=== PATIENT | male | born 1950 | race Caucasian/White ===

== ENCOUNTER 2016-12-11 19:18 | Emergency (ER) | payer MEDICARE, OTHER ==
[2016-12-11 19:55] VITALS: PULSE 88; TEMP 97.8; BMI 28.3
[2016-12-11] MEDS ORDERED: ONDANSETRON 4 MG/2 ML VIAL IVPUSH ONE (20:27)
[2016-12-11] MEDS ORDERED: morphine CARPU-JECT 4 MG/1 ML DISP.SYRIN IVPUSH ONE (20:27)
[2016-12-11] MEDS ORDERED: SODIUM CHLORIDE 1,000 ML IV STA (20:27)
[2016-12-11] MEDS ORDERED: morphine CARPU-JECT 4 MG/1 ML DISP.SYRIN ONE (20:38)
[2016-12-11] MEDS ORDERED: ONDANSETRON 4 MG/2 ML VIAL ONE (20:38)
[2016-12-11 21:29] LABS: BASOPHIL 0.6 % (0-2.0); EOSINOPHIL 3.3 % (0-4.5); MCH 31.1 pg (25.7-33.7); MCHC 34.2 g/dl (32.0-35.9); MEAN CELL VOLUME 90.9 fl (80-96); MEAN PLT VOLUME 7.5 fl (7.5-11.1); NEUTROPHILS 62.7 % (42.8-82.8); PLATELET COUNT 400 K/MM3 (134-434); RDW 13.2 % (11.9-15.9); WHITE BLOOD COUNT 14.6 K/mm3 (4.0-10.0)
[2016-12-11 21:51] LABS: URINE APPEARANCE CLEAR; URINE BILIRUBIN NEGATIVE (NEGATIVE); URINE COLOR STRAW; URINE GLUCOSE (UA) NEGATIVE (NEGATIVE); URINE KETONE NEGATIVE (NEGATIVE); URINE NITRITE NEGATIVE (NEGATIVE); URINE PROTEIN NEGATIVE (NEGATIVE); URINE UROBILINOGEN NEGATIVE E.U./dl (0.2-1.0)
[2016-12-11 21:53] LABS: URINE BLOOD 2+ (NEGATIVE); URINE LEUK ESTERASE 3+ (NEGATIVE)
[2016-12-11 21:55] LABS: ACTIVATED PTT 29.8 SECONDS (26.9-34.4); D-DIMER < 200 ng/ml (<200-235)
[2016-12-11 21:57] LABS: ALBUMIN 3.2 g/dl (3.4-5.0); ANION GAP 13 (8-16); BILIRUBIN,TOTAL 0.3 mg/dL (0.2-1.0); CALCIUM 7.8 mg/dL (8.5-10.1); CO2 19 mmol/L (21-32); COCKROFT - GAULT 93.23; CREATININE 0.8 mg/dL (0.7-1.3); GLUCOSE,RANDOM 131 mg/dL (74-106); SGOT/AST 18 U/L (15-37); SGPT/ALT 40 U/L (12-78); TOT PROT 6.4 g/dl (6.4-8.2)
[2016-12-11 21:59] LABS: ALK PHOS 84 U/L (45-117); TROPONIN I < 0.02 ng/ml (0.00-0.05)
[2016-12-11 22:02] LABS: URINE MUCUS RARE; URINE RBC 21 /hpf (0-3); URINE WBC 70 /hpf (3-5)
[2016-12-11] MEDS ORDERED: HYDROmorphone HCL CARPU-JECT 1 MG/1 ML DISP.SYRIN IVPB ONE (22:35)
[2016-12-11 22:46] VITALS: BP 127/78
--- NOTE | 2016-12-11 23:21 | PDOC ---
History of Present Illness - General Chief Complaint: Chest Pain Stated Complaint: CHEST PAIN Time Seen by Provider: 12/11/16 19:33 History Source: Patient, Family (Son), Geologic Technician Used Exam Limitations: Language Barrier - History of Present Illness Initial Comments: 12/11/16 23:17 66yo Male patient presents to c/o chest pain, upper back pain, and trouble breathing since 10am this morning, which is getting worse. Patient states 2 weeks ago, renal stent placed by Dr. Del Cid due to Renal Colic. Family reports during surgery patient became hypotensive. Family denies fever, n/v/d, abdominal pain, or any other complaints at this time. Presenting Symptoms: Back Pain, Chest Pain Timing/Duration: reports: getting worse Severity/Quality: reports: moderate Location: reports: substernal Chest Pain Radiation: reports: back Activities at Onset: reports: no specific activity Prior Chest Pain/Cardiac Workup: denies: No prior chest pain, No prior cardiac workup, Non-cardiac, Angina, Cardiac Cath, Cardiolye Scan, Echocardiography, Heart Attack, Pulmonary Embolism, Stress Test, Thallium Scan, Other Modifying Factors: worse with: antacids, breathing, coughing, defecating, eating , exercise, lying down, morphine, movement, nitroglycerin, oxygen, palpation, rest, other Nitro Today/Relief: No: no nitro taken today, 0.4 mg x 1, 0.4 mg x 2, 0.4 mg x 3 , 0.4 mg x 4, provided by EMS, provided by ED, provided at home, no relief, mild relief, complete relief Aspirin Received prior to arrival (Core Measure): No: no aspirin today, unknown , 81 mg x 1, 81 mg x 2, 81 mg x 3, 81 mg x 4, 325 mg x 1, provided at home, provided by EMS, provided by ED Past History - Travel Traveled outside of the country in the last 30 days: No Close contact w/someone who was outside of country & ill: No - Past Medical History Allergies/Adverse Reactions: Allergies Allergy/AdvReac Type Severity Reaction Status Date / Time No Known Allergies Allergy Verified 12/11/16 19:26 Home Medications: Ambulatory Orders Alfuzosin HCl [Alfuzosin HCl ER] 10 mg PO DAILY 12/12/16 Cyclobenzaprine HCl [Flexeril 10 mg] 10 mg PO TID PRN #15 tablet 12/12/16 Escitalopram Oxalate [Lexapro -] 5 mg PO DAILY 12/12/16 Levofloxacin [Levaquin] 500 mg PO DAILY 12/12/16 Levofloxacin [Levaquin] 750 mg PO DAILY #6 tab 12/12/16 Oxycodone HCl/Acetaminophen [Percocet 5-325 mg Tablet] 1 tab PO Q6H PRN #20 tablet MDD 4 tabs 12/12/16 Zolpidem Tartrate 10 mg PO DAILY 12/12/16 Diabetes: Yes Hypercholesterolemia: Yes - Surgical History Cholecystectomy: Yes - Psycho/Social/Smoking Cessation Hx Suicidal Ideation: No Smoking History: Unknown if ever smoked Have you smoked in the past 12 months: No Number of Cigarettes Smoked Daily: 0 Information on smoking cessation initiated: No Hx Alcohol Use: No Drug/Substance Use Hx: No Cardiac Specific PMH - Complaint Specific PMHX Abdominal Aortic Aneurysm: No Angina: No Cardiac Arrhythmia: No Cardiac Stent: No GERD: No Myocardial Infarction: No Pacemaker: No Pulmonary Embolus: No Valvular Heart Disease: No Peripheral Vascular Disease: No Review of Systems - Review of Systems Able to Perform ROS?: Yes Is the patient limited Yi proficient: No Constitutional: No: Chills, Fever Respiratory: Yes: Shortness of Breath. No: Cough, Orthopnea, Stridor, Wheezing Cardiac (ROS): Yes: Chest Pain. No: Edema, Lightheadedness, Palpitations, Syncope, Chest Tightness ABD/GI: No: Diarrhea, Nausea, Poor Appetite, Poor Fluid Intake, Vomiting, Abdominal cramping : No: Burning, Dysuria, Frequency, Flank Pain, Hematuria Musculoskeletal: Yes: Back Pain. No: Muscle Pain, Muscle Weakness Integumentary: No: Erythema, Rash, Sweating Neurological: No: Headache, Seizure, Weakness, Unsteady Gait, Ataxia, Dizziness All Other Systems: Reviewed and Negative *Physical Exam - Vital Signs Last Vital Signs Temp Pulse Resp BP Pulse Ox 97.8 F 88 16 127/78 98 12/11/16 19:53 12/11/16 19:53 12/11/16 19:53 12/11/16 22:36 12/11/16 22:36 - Physical Exam General Appearance: Yes: Nourished, Appropriately Dressed, Apparent Distress, Moderate Distress. No: Mild Distress, Severe Distress Neck: positive: Trachea midline, Normal Thyroid, Supple. negative: Tender, Lymphadenopathy (R), Lymphadenopathy (L) Respiratory/Chest: positive: Lungs Clear, Normal Breath Sounds. negative: Respiratory Distress, Accessory Muscle Use, Labored Respiration, Rapid RR, Stridor, Wheezing Cardiovascular: positive: Regular Rhythm, Regular Rate. negative: Edema, JVD, Murmur Gastrointestinal/Abdominal: positive: Normal Bowel Sounds, Soft. negative: Distended, Guarding, Rebound, Tenderness Musculoskeletal: positive: Normal Inspection. negative: CVA Tenderness Extremity: positive: Normal Capillary Refill, Normal Inspection, Normal Range of Motion Integumentary: positive: Normal Color, Dry, Warm Neurologic: positive: foreign diplomat II-XII NML intact, Fully Oriented, Alert, Normal Mood/ Affect, Normal Response, Motor Strength 01/04 ED Treatment Course - LABORATORY CBC & Chemistry Diagram: 12/11/16 21:25 12/11/16 21:25 - ADDITIONAL ORDERS Additional order review: Laboratory Results 12/12/16 12/11/16 12/11/16 02:00 21:25 21:25 INR PTT (Actin FS) D-Dimer Sodium 136 Potassium 4.2 Chloride 104 Carbon Dioxide 19 L Anion Gap 13 BUN 13 Creatinine 0.8 Creat Clearance w eGFR > 60 Random Glucose 131 H Calcium 7.8 L Total Bilirubin 0.3 AST 18 ALT 40 Alkaline Phosphatase 84 Creatine Kinase 139 131 Troponin I < 0.02 < 0.02 Total Protein 6.4 Albumin 3.2 L Urine Color Straw Urine Appearance Clear Urine pH 5.0 Ur Specific [place] 1.010 Urine Protein Negative Urine Glucose (UA) Negative Urine Ketones Negative Urine Blood 2+ H Urine Nitrite Negative Urine Bilirubin Negative Urine Urobilinogen Negative Ur Leukocyte Esterase 3+ H Urine RBC 21 Urine WBC 70 Urine Mucus Rare 12/11/16 21:25 INR 1.10 PTT (Actin FS) 29.8 D-Dimer < 200 Sodium Potassium Chloride Carbon Dioxide Anion Gap BUN Creatinine Creat Clearance w eGFR Random Glucose Calcium Total Bilirubin AST ALT Alkaline Phosphatase Creatine Kinase Troponin I Total Protein Albumin Urine Color Urine Appearance Urine pH Ur Specific [place] Urine Protein Urine Glucose (UA) Urine Ketones Urine Blood Urine Nitrite Urine Bilirubin Urine Urobilinogen Ur Leukocyte Esterase Urine RBC Urine WBC Urine Mucus 12/11/16 21:25 RBC 3.96 L MCV 90.9 MCHC 34.2 RDW 13.2 MPV 7.5 Neutrophils % 62.7 Lymphocytes % 25.0 Monocytes % 8.4 Eosinophils % 3.3 Basophils % 0.6 - RADIOLOGY Radiology Studies Ordered: Category Date Time Status ABDOMEN & PELVIS CT WITH CONTR [CT] Stat CT Scan 12/11/16 22:[address] WITH CONTRAST [CT] Stat CT Scan 12/11/16 23:35 Taken CHEST X-RAY PORTABLE* [RAD] Stat Radiology 12/11/16 20:27 Taken - Medications Given in the ED: ED Medications Discontinued Medications Generic Name Dose Route Start Last Admin Trade Name Freq PRN Reason Stop Dose Admin Hydromorphone HCl 1 mg 12/11/16 22:35 12/11/16 23:34 Dilaudid Injection - IVPB 12/11/16 22:36 1 mg ONCE ONE Administration Sodium Chloride 1,000 mls @ 1,000 mls/hr 12/11/16 20:27 12/11/16 20:46 Normal Saline - IV 12/11/16 21:26 1,000 mls/hr ASDIR STA Administration Morphine Sulfate 4 mg 12/11/16 20:27 12/11/16 20:45 Morphine Injection - IVPUSH 12/11/16 20:28 4 mg ONCE ONE Administration Ondansetron HCl 4 mg 12/11/16 20:27 12/11/16 20:46 Zofran Injection IVPUSH 12/11/16 20:28 4 mg ONCE ONE Administration *DC/Admit/Observation/Transfer Diagnosis at time of Disposition: Atypical chest pain UTI (urinary tract infection) Qualifiers: Urinary tract infection type: catheter-associated UTI Indwelling urinary catheter type: indwelling urethral catheter Encounter type: initial encounter Qualified Code(s): T83.511A - Infection and inflammatory reaction due to indwelling urethral catheter, initial encounter; N39.0 - Urinary tract infection , site not specified - Discharge Dispostion Disposition: HOME Condition at time of disposition: Improved Admit: No - Prescriptions Prescriptions: Cyclobenzaprine HCl [Flexeril 10 mg] 10 mg PO TID PRN #15 tablet PRN Reason: Back Pain Levofloxacin [Levaquin] 750 mg PO DAILY #6 tab Oxycodone HCl/Acetaminophen [Percocet 5-325 mg Tablet] 1 tab PO Q6H PRN #20 tablet MDD 4 tabs PRN Reason: Severe Pain - Patient Instructions Printed Discharge Instructions: DI for Atypical Chest Pain, DI for Urinary Tract Infection (UTI) Additional Instructions: Seguimiento con el Dr. Balderas esta semana. Llame para programar paris mikey. [place] los medicamentos segn lo prescrito. Motrin o Tylenol para dolor leve segn sea necesario. Percocet para el dolor no aliviado por Motrin o Tylenol. No conduzca , hien alcohol ni opere maquinaria pesada mientras est tomando Percocet. Hien mercedes agua. Regresar si los sntomas empeoran o cualquier inquietud para paris evaluacin posterior. Follow up with Dr. Balderas this week. Call to schedule appointment. Take medications as prescribed. Motrin or Tylenol for mild pain as needed. Percocet for pain not relieved by Motrin or Tylenol. Do not drive, drink alcohol, or operate heavy machinery while taking Percocet. Drink plenty water. Return if symptoms worsen or any concerns for further evaluation. Print Language: JAMAICAN
[2016-12-11] MEDS ORDERED: HYDROmorphone HCL CARPU-JECT 1 MG/1 ML DISP.SYRIN ONE (23:35)
--- NOTE | 2016-12-11 23:58 | PDOC ---
*Physical Exam - Vital Signs Last Vital Signs Temp Pulse Resp BP Pulse Ox 97.8 F 88 16 127/78 98 12/11/16 19:53 12/11/16 19:53 12/11/16 19:53 12/11/16 22:36 12/11/16 22:36 - Physical Exam Comments: 12/11/16 23:57 The patient was examined by FRANTZ Landa under my direct supervision. I personally evaluated the patient. I concur with the above findings and the plan of care. ED Treatment Course - LABORATORY CBC & Chemistry Diagram: 12/11/16 21:25 12/11/16 21:25 - ADDITIONAL ORDERS Additional order review: Laboratory Results 12/11/16 12/11/16 12/11/16 21:25 21:25 21:25 INR 1.10 PTT (Actin FS) 29.8 D-Dimer < 200 Sodium 136 Potassium 4.2 Chloride 104 Carbon Dioxide 19 L Anion Gap 13 BUN 13 Creatinine 0.8 Creat Clearance w eGFR > 60 Random Glucose 131 H Calcium 7.8 L Total Bilirubin 0.3 AST 18 ALT 40 Alkaline Phosphatase 84 Creatine Kinase 131 Troponin I < 0.02 Total Protein 6.4 Albumin 3.2 L Urine Color Straw Urine Appearance Clear Urine pH 5.0 Ur Specific [place] 1.010 Urine Protein Negative Urine Glucose (UA) Negative Urine Ketones Negative Urine Blood 2+ H Urine Nitrite Negative Urine Bilirubin Negative Urine Urobilinogen Negative Ur Leukocyte Esterase 3+ H Urine RBC 21 Urine WBC 70 Urine Mucus Rare 12/11/16 21:25 RBC 3.96 L MCV 90.9 MCHC 34.2 RDW 13.2 MPV 7.5 Neutrophils % 62.7 Lymphocytes % 25.0 Monocytes % 8.4 Eosinophils % 3.3 Basophils % 0.6 - Medications Given in the ED: ED Medications Discontinued Medications Generic Name Dose Route Start Last Admin Trade Name Freq PRN Reason Stop Dose Admin Hydromorphone HCl 1 mg 12/11/16 22:35 12/11/16 23:34 Dilaudid Injection - IVPB 12/11/16 22:36 1 mg ONCE ONE Administration Sodium Chloride 1,000 mls @ 1,000 mls/hr 12/11/16 20:27 12/11/16 20:46 Normal Saline - IV 12/11/16 21:26 1,000 mls/hr ASDIR STA Administration Morphine Sulfate 4 mg 12/11/16 20:27 12/11/16 20:45 Morphine Injection - IVPUSH 12/11/16 20:28 4 mg ONCE ONE Administration Ondansetron HCl 4 mg 12/11/16 20:27 12/11/16 20:46 Zofran Injection IVPUSH 12/11/16 20:28 4 mg ONCE ONE Administration *DC/Admit/Observation/Transfer Diagnosis at time of Disposition: UTI (urinary tract infection), Atypical chest pain - Discharge Dispostion Disposition: HOME - Prescriptions Prescriptions: Cyclobenzaprine HCl [Flexeril 10 mg] 10 mg PO TID PRN #15 tablet PRN Reason: Back Pain Levofloxacin [Levaquin] 750 mg PO DAILY #6 tab Oxycodone HCl/Acetaminophen [Percocet 5-325 mg Tablet] 1 tab PO Q6H PRN #20 tablet MDD 4 tabs PRN Reason: Severe Pain - Referrals Referrals: Linus Balderas MD [Primary Care Provider] - - Patient Instructions Printed Discharge Instructions: DI for Urinary Tract Infection (UTI), DI for Atypical Chest Pain Additional Instructions: Seguimiento con el Dr. Balderas esta semana. Llame para programar paris mikey. [place] los medicamentos segn lo prescrito. Motrin o Tylenol para dolor leve segn sea necesario. Percocet para el dolor no aliviado por Motrin o Tylenol. No conduzca , hien alcohol ni opere maquinaria pesada mientras est tomando Percocet. Hien mercedes agua. Regresar si los sntomas empeoran o cualquier inquietud para paris evaluacin posterior. Follow up with Dr. Balderas this week. Call to schedule appointment. Take medications as prescribed. Motrin or Tylenol for mild pain as needed. Percocet for pain not relieved by Motrin or Tylenol. Do not drive, drink alcohol, or operate heavy machinery while taking Percocet. Drink plenty water. Return if symptoms worsen or any concerns for further evaluation. Print Language: ESTONIAN
[2016-12-12 02:47] LABS: TROPONIN I < 0.02 ng/ml (0.00-0.05)
[2016-12-12] MEDS ORDERED: OXYCODONE/APAP 5/325MG COMBO TABLET PO ONE (02:57)
[2016-12-12] MEDS ORDERED: AZITHROMYCIN 250 MG TABLET (FP) PO ONE (02:57)
[2016-12-12] MEDS ORDERED: LEVOFLOXACIN 500 MG TABLET (FP) ONE (03:22)
[2016-12-12] MEDS ORDERED: OXYCODONE/APAP 5/325MG COMBO TABLET ONE (03:22)
[2016-12-12] MEDS ORDERED: LEVOFLOXACIN 250 MG TABLET (FP) ONE (03:23)
[2016-12-12] MEDS ORDERED: LEVOFLOXACIN 750 MG TABLET PO ONE (03:51)
[2016-12-12] MEDS ORDERED: LEVOFLOXACIN 750 MG TABLET PO SCH (10:00)
--- NOTE | 2016-12-13 11:42 | EKG ---
Test Reason : Blood Pressure : / mmHG Vent. Rate : 080 BPM Atrial Rate : 080 BPM P-R Int : 190 ms QRS Dur : 078 ms QT Int : 358 ms P-R-T Axes : 053 055 062 degrees QTc Int : 412 ms NORMAL SINUS RHYTHM NORMAL ECG NO PREVIOUS ECGS AVAILABLE Confirmed by KAVYA TEE MD ([id number]) on 12/13/2016 11:41:38 AM Referred By: Confirmed By:KAVYA TEE MD
== END 2016-12-12 03:37 | disposition home or self-care (01) ==
LOC: JER 19:18
PROC: 3E033NZ Introduction of Analgesics, Hypnotics, Sedatives into Peripheral Vein, Percutaneous Approach (ICD-10-PCS; principal; 2016-12-11)
PROC: 3E033GC Introduction of Other Therapeutic Substance into Peripheral Vein, Percutaneous Approach (ICD-10-PCS; 2016-12-11)
DX: R07.89 Other chest pain (principal); T83.511A Infection and inflammatory reaction due to indwelling urethral catheter, initial encounter; N31.9 Neuromuscular dysfunction of bladder, unspecified
CPT/HCPCS: 36415; 71010-TC; 71260-TC; 74177-TC; 80053; 81003; 81015; 82550; 84484; 85025; 85379; 85610; 85730; 87086; 93005; 93010; 96374; 96375; 99284-25

== ENCOUNTER 2017-04-18 08:52 | Day surgery (SDC) | payer MEDICARE, OTHER ==
[2017-04-17 11:41] VITALS: BMI 28.3
[2017-04-18] MEDS ORDERED: PROPOFOL 20 ML ONE (10:49)
[2017-04-18] MEDS ORDERED: MIDAZOLAM HCL 2 MG/2 ML SINGLE DOSE VIAL ONE (10:49)
[2017-04-18] MEDS ORDERED: LIDOCAINE HCL/PF 2% SDV 5ML VIAL ONE (10:50)
[2017-04-18] MEDS ORDERED: LIDOCAINE HCL 2% JELLY 10 ML CARTRIDGE ONE (11:46)
[2017-04-18] MEDS ORDERED: LEVOFLOXACIN 500 MG IVPB ONE (12:50)
[2017-04-18] MEDS ORDERED: LEVOFLOXACIN 500 MG PREMIX BAG IVPB ONE (12:51)
[2017-04-18] MEDS ORDERED: FUROSEMIDE 40 MG/4 ML INJECTABLE VIAL ONE (13:06)
[2017-04-18] MEDS ORDERED: oxyCODONE HCL 5 MG TABLET PO PRN (13:19)
--- NOTE | 2017-04-18 13:19 | OP ---
Operative Note - Note: Operative Date: 04/18/17 Pre-Operative Diagnosis: BPH Operation: bipolar TURP Findings: lateral lobe tissue invaginating into bladder Post-Operative Diagnosis: Same as Pre-op Surgeon: Ayad Figueredo Anesthesia: Spinal Specimens Removed: prostate chips Estimated Blood Loss (mls): 5 Drains & Tubes with Location: 24 fr renee Operative Report Dictated: Yes
[2017-04-18] MEDS ORDERED: ACETAMINOPHEN 325 MG TABLET (FP) PO PRN (13:21)
[2017-04-18] MEDS ORDERED: ONDANSETRON 4 MG/2 ML VIAL IVPUSH PRN (13:21)
[2017-04-18] MEDS ORDERED: ELECTROLYTE-148 SOLN 1,000 ML IV SCH (13:30)
[2017-04-18] MEDS ORDERED: LACTATED RINGERS SOLUTION 1,000 ML IV SCH (13:30)
[2017-04-18 14:39] VITALS: TEMP 97.7
--- NOTE | 2017-04-18 14:54 | OP ---
DATE OF OPERATION: DATE OF DICTATION: 04/18/2017 PREOPERATIVE DIAGNOSIS: Benign prostatic hypertrophy with frequency, urgency and bladder outlet obstruction. POSTOPERATIVE DIAGNOSIS: Benign prostatic hypertrophy with frequency, urgency and bladder outlet obstruction. PROCEDURE PERFORMED: Cystoscopy, bipolar transurethral resection of the prostate. SURGEON: Jean Carlos Delgado MD INDICATIONS: The patient is a 66-year-old male with history of BPH and bladder stones, status post TURP in the past and lithotripsy of bladder stones. He has had persistent urinary symptoms. Urodynamics revealed bladder outlet obstruction. After reviewing treatment options, the patient elected to undergo repeat TURP. The risks, benefits and alternatives were discussed, including bleeding, infection, impotence, incontinence, persistence of urinary symptoms, de samuel worsening of incontinence, erectile dysfunction, potential obstruction, and the potential need for additional procedures. DESCRIPTION OF PROCEDURE: After informed consent was obtained, the patient was taken to the OR and placed supine on the operating table. With cardiac monitoring established, a spinal anesthetic was then given. He was given 500 mg of Levaquin. The Olympus resectoscope with the visual obturator was inserted without difficulty. The anterior urethra was normal. The prostatic urethra with status post TUR defect with a large left lateral lobe of the prostate growing into the bladder. The bilateral ureteral orifices were seen and normal Using the bipolar loop, the large lateral tissue invaginating into the bladder was resected down to the muscle fibers of the prostatic urethra. All bleeding sites were then cauterized. No other obstructive tissue was noted. There was no resection beyond the verumontanum, to minimize incontinence. The [employer] evacuator was used to remove prostate chips. The resectoscope was then removed, and a 24-Ramirez was then placed to straight drainage. [place]-tinged urine was retrieved. The patient was then awoke from anesthesia and transferred to the recovery room in stable condition. There were no complications. Estimated blood loss was minimal. JEAN CARLOS DELGADO M.D. [id number]
[2017-04-18 16:30] VITALS: BP 109/69; PULSE 66
--- NOTE | 2017-04-19 16:21 | PATH ---
Surgical Pathology Report Patient Name: MARGUERITE JORGE [facility]. Rec. #: [id number] /Age/Gender: 1950 (Age: 66) / M Account: [id number] Location: [facility] SURGICAL Taken: 04/18/2017 Received: 04/18/2017 Reported: 04/19/2017 Physicians: Ayad Figueredo M.D. Specimen(s) Received PROSTATE CHIPS Clinical History BPH with LUTS Final Diagnosis PROSTATE, TUR: BENIGN PROSTATE TISSUE WITH GLANDULAR AND STROMAL HYPERPLASIA. Electronically Signed Rambo Lainez M.D. Gross Description Received in formalin labeled "prostate tissue" is a 3 g, 3.8 x 3.6 x 0.4 cm aggregate of pink-ramos, irregular portions of firm to rubbery tissue, consistent with prostate chips. The specimen is entirely submitted in 4 cassettes. /04/18/2017 saudi04/18/2017
== END 2017-04-18 16:10 | disposition home or self-care (01) ==
LOC: JASU-SURG 08:52
PROVIDERS: ATTEND Urology
PROC: 0VT08ZZ Resection of Prostate, Via Natural or Artificial Opening Endoscopic (ICD-10-PCS; principal; 2017-04-18 11:00)
DX: N40.1 Benign prostatic hyperplasia with lower urinary tract symptoms (principal); R35.0 Frequency of micturition; R39.15 Urgency of urination
CPT/HCPCS: 88305-TC; 94760

== ENCOUNTER 2017-04-18 18:34 | Emergency (ER) | payer MEDICARE, OTHER ==
[2017-04-18 18:47] VITALS: BP 112/73; PULSE 98; TEMP 98; BMI 28.3
[2017-04-18] MEDS ORDERED: LIDOCAINE HCL 2% JELLY (5 ML/TUBE) ONE (19:30)
--- NOTE | 2017-04-18 19:33 | PDOC ---
History of Present Illness - General Chief Complaint: Urinary Catheter Problem Stated Complaint: ER REVIST Time Seen by Provider: 04/18/17 19:32 - History of Present Illness Initial Comments: 66 year old male with PMH of diabetes and BPH presenting with penile pain after a turp today with renee placement. He does not endorse any bleeding in his urine or from the orifice of his penis but is in excruciating pain. Denies fevers, chills, nausea, vomiting, or other sick symptoms. 04/18/17 20:22 Past History - Past Medical History Allergies/Adverse Reactions: Allergies Allergy/AdvReac Type Severity Reaction Status Date / Time No Known Allergies Allergy Verified 04/18/17 18:44 Home Medications: Ambulatory Orders Metformin HCl [Metformin HCl ER] 1,000 mg PO BID 04/17/17 Ciprofloxacin [Cipro -] 500 mg PO Q12H #28 tablet 04/18/17 Terazosin HCl 5 mg PO BID 04/18/17 Tramadol HCl [Ultram] 50 mg PO PRN 04/18/17 Diabetes: Yes Hypercholesterolemia: Yes Other medical history: BPH - Surgical History Cholecystectomy: Yes - Psycho/Social/Smoking Cessation Hx Anxiety: No Suicidal Ideation: No Smoking History: Never smoked Have you smoked in the past 12 months: No Number of Cigarettes Smoked Daily: 0 Information on smoking cessation initiated: No Hx Alcohol Use: No Drug/Substance Use Hx: No Substance Use Type: None Review of Systems - Review of Systems Constitutional: No: Chills, Diaphoresis, Fever HEENTM: No: Eye Pain, Blurred Vision Respiratory: No: Cough, Shortness of Breath Cardiac (ROS): No: Chest Pain, Edema ABD/GI: No: Constipated, Diarrhea, Nausea, Vomiting *Physical Exam - Vital Signs Last Vital Signs Temp Pulse Resp BP Pulse Ox 98.0 F 98 H 18 112/73 100 04/18/17 18:45 04/18/17 18:45 04/18/17 18:45 04/18/17 18:45 04/18/17 18:45 - Physical Exam General Appearance: Yes: Nourished, Appropriately Dressed, Apparent Distress, Moderate Distress HEENT: positive: EOMI, K[place] Neck: positive: Trachea midline, Normal Thyroid, Supple. negative: Tender, Rigid Respiratory/Chest: positive: Lungs Clear, Normal Breath Sounds. negative: Chest Tender, Respiratory Distress Cardiovascular: positive: Regular Rhythm, Regular Rate. negative: S1, S2, Murmur Gastrointestinal/Abdominal: positive: Normal Bowel Sounds, Flat, Soft. negative : Tender Male Genitalia: positive: normal genitalia, other (No blood at the urethral meatus). negative: discharge, testicular tenderness, testicular mass Musculoskeletal: positive: Normal Inspection Extremity: positive: Normal Range of Motion Integumentary: positive: Normal Color, Dry, Warm Neurologic: positive: Fully Oriented, Alert, Normal Mood/Affect Procedures - Bedside Ultrasound Other: Bladder (Post Void Residual) Remarks: 04/18/17 21:07 Bladder identified and seemed adequately decompressed after self void without Renee in place. Could not be measured due to technical difficulties. Medical Decision Making - Medical Decision Making 66 year old male with penile pain after post TURP Renee placement. Renee was removed by nurse and the patient urinated without diffculty and bladder appeared decompressed on bladder scan. Urine appeared clear and sent for UA. 04/18/17 21:06 04/18/17 21:41 UA demonstrating 3+ Leuk Esterase and Dr. Ballesteros was OK with not placing the renee as the patient staunchly refused. Will send out with 500 cipro BID for 7 days and followup tomorrow with Dr. Ballesteros. *DC/Admit/Observation/Transfer Diagnosis at time of Disposition: UTI (urinary tract infection), Penile pain - Discharge Dispostion Disposition: HOME Condition at time of disposition: Improved Admit: No - Prescriptions Prescriptions: Ciprofloxacin [Cipro -] 500 mg PO Q12H #28 tablet - Referrals Referrals: Ayad Figueredo MD [Staff Physician] - - Patient Instructions Additional Instructions: Te vieron por dolor en pene. Le quitaron a strong Renee y se sinti mejor. Usted fue capaz de orinar despus de quitar el Renee. Tambin tomamos paris foto de strong vejiga y vimos muy poca orina as que creemos que usted puede orinar sin dificultad. Por favor, siga con strong urlogo maana. Por favor regrese a la DE si tiene problemas para orinar o kerrie en la orina. - Attestations Physician Attestion: Dr. Marni Cha, attest that this document has been prepared under my direction and personally reviewed by me in its entirety. I further attest, that it accurately reflects all work, treatment, procedures and medical decision -making performed by me. 04/18/17 21:49
--- NOTE | 2017-04-18 21:01 | PDOC ---
Attending Attestation - Resident Resident Name: Marni Gee - ED Attending Attestation I have performed the following: I have examined & evaluated the patient, The case was reviewed & discussed with the resident, I agree w/resident's findings & plan, Exceptions are as noted - HPI HPI: 04/18/17 21:00 66-year-old male with history of diabetes, hyperlipidemia, BPH resents with bladder pain. The patient reports having a TURP performed today and had a 24 [place] Renee catheter placed. Reports that the Renee straining was causing severe discomfort. Patient denies fevers or chills. Reports lower abdominal discomfort. - Physicial Exam PE: 04/18/17 21:00 GENERAL: Awake, alert, and fully oriented. Uncomfortable appearing HEAD: No signs of trauma EYES: PERRLA, EOMI, sclera anicteric, conjunctiva clear ENT: Auricles normal inspection, hearing grossly normal, nares patent, oropharynx clear without exudates. NECK: Normal ROM, supple, no lymphadenopathy, JVD, or masses LUNGS: Breath sounds equal, clear to auscultation bilaterally. No wheezes, and no crackles HEART: Regular rate and rhythm, normal S1 and S2, no murmurs, rubs or gallops ABDOMEN: Soft, normoactive bowel sounds. No guarding, no rebound. No masses. Suprapubic pain. : No testicular tenderness or drainage or erythema. Renee in placed. EXTREMITIES: Normal range of motion, no edema. No clubbing or cyanosis. No cords, erythema, or tenderness NEUROLOGICAL: Cranial nerves II through XII grossly intact. Normal speech, normal gait SKIN: Warm, Dry, normal turgor, no rashes or lesions noted. - Medical Decision Making 04/18/17 21:00 Vital Signs Temp Pulse Resp BP Pulse Ox 98.0 F 98 H 18 112/73 100 04/18/17 18:45 04/18/17 18:45 04/18/17 18:45 04/18/17 18:45 04/18/17 18:45 I suspect that the Renee catheter was causing bladder irritation given that the Renee catheter which drainage. Renee catheter was removed with significant improvement in symptoms. Case was discussed with Dr. Lanier by Dr. Gee. Requests that we replace the catheter. Will await UA to r/o UTI. 04/18/17 21:12 Dr. Gee will touch base with Dr. Lanier regarding the renee catheter. If the patient does not want the ernee catheter, will need to inform patient regarding the risks of not having a renee. He did however void here in the ED. 04/18/17 21:[address] Brock. He is aware that the patient does not want a renee catheter.
[2017-04-18 21:14] LABS: URINE APPEARANCE SLCLOUDY; URINE BILIRUBIN NEGATIVE (NEGATIVE); URINE BLOOD 3+ (NEGATIVE); URINE COLOR YELLOW; URINE GLUCOSE (UA) NEGATIVE (NEGATIVE); URINE KETONE NEGATIVE (NEGATIVE); URINE NITRITE NEGATIVE (NEGATIVE); URINE UROBILINOGEN NEGATIVE mg/dL (0.2-1.0)
[2017-04-18 21:35] LABS: URINE LEUK ESTERASE 3+ (NEGATIVE); URINE PROTEIN 2+ (NEGATIVE)
[2017-04-18 21:37] LABS: URINE BACTERIA MODERATE /hpf (NONE SEEN); URINE HYALINE CAST 1 /lpf; URINE MUCUS RARE; URINE RBC 34 /hpf (0-3); URINE WBC 81 /hpf (3-5)
== END 2017-04-18 22:00 | disposition home or self-care (01) ==
LOC: JER 18:34
PROC: 0TPB70Z Removal of Drainage Device from Bladder, Via Natural or Artificial Opening (ICD-10-PCS; principal; 2017-04-18)
DX: N39.0 Urinary tract infection, site not specified (principal); N48.89 Other specified disorders of penis; E11.9 Type 2 diabetes mellitus without complications; E78.00 Pure hypercholesterolemia, unspecified; N40.0 Benign prostatic hyperplasia without lower urinary tract symptoms; Z79.84 Long term (current) use of oral hypoglycemic drugs; Z46.6 Encounter for fitting and adjustment of urinary device
CPT/HCPCS: 81003; 81015; 99282-25